=== PATIENT | female | born 1950 | race Caucasian/White ===

== ENCOUNTER 2018-03-02 00:11 | Emergency (ER) | payer BC, OTHER ==
[~2018-03-02] VITALS: Ht 167.6 cm; Wt 99.1 kg
[2018-03-02 01:51] LABS: APPEARANCE CLEAR ((CLEAR)); BILIRUBIN NEGATIVE; BLOOD NEGATIVE; COLOR YELLOW ((YELLOW)); GLUCOSE (STRIP) >=500; KETONES NEGATIVE; LEUKOCYTES MODERATE; NITRITE NEGATIVE; PROTEIN (STRIP) NEGATIVE; SPECIFIC GRAVITY 1.025 (1.000-1.030); UROBILINOGEN 0.2 MG/DL (0.2-1.0)
[2018-03-02 01:58] LABS: BACTERIA RARE /HPF; EPITHELIAL CELLS RARE /HPF; HYALINE CASTS 0-5 /LPF; MUCUS TRACE /LPF; RED BLOOD CELLS 0-5 /HPF (0-5); UCUL ADDED? YES
[2018-03-02] MEDS ORDERED: ULTRAM50 MG PO (02:37)
[2018-03-02 02:52] VITALS: BP 159/80
== END 2018-03-02 02:52 | disposition home or self-care (01) ==
LOC: EME 00:11
PROVIDERS: Physician Assistant
DX: S30.0XXA Contusion of lower back and pelvis, initial encounter (principal); W01.198A Fall on same level from slipping, tripping and stumbling with subsequent striking against other object, initial encounter; W10.8XXA Fall (on) (from) other stairs and steps, initial encounter; Y92.39 Other specified sports and athletic area as the place of occurrence of the external cause; M51.35 Other intervertebral disc degeneration, thoracolumbar region; I10 Essential (primary) hypertension; Z86.73 Personal history of transient ischemic attack (TIA), and cerebral infarction without residual deficits; Z98.890 Other specified postprocedural states; Z90.49 Acquired absence of other specified parts of digestive tract; Z90.411 Acquired partial absence of pancreas
CPT/HCPCS: 71046; 72100; 81003; 87077; 87086; 87186; 99281; 99284